=== PATIENT | female | born 1940 | race Caucasian/White ===

== ENCOUNTER → 2016-12-20 | Outpatient (CLI) | payer MEDICARE, OTHER ==
[~2016-12-20] MED LIST: ASPI81TA3 PO; CLON2TAB3 PO; DIPH-232 PO; ERGO500037 PO; IBAN3DIS2 IV; LEVO50TA83 PO; OLME1TAB28 PO; OMEP40CA3 PO; RANI75TA13 PO; SMV40T PO; ZOFRAN PO
--- NOTE | 2016-12-21 10:11 | RADRPT ---
PROCEDURE: CT Chest without contrast. CLINICAL INDICATION: PLEURAL EFFUSION TECHNIQUE: CT scan of the chest without contrast was performed on a multidetector high-resolution CT scanner. Coronal and sagittal reformatted images were obtained from the axial source images. The total exam CTDI equals 40 mGy and the total exam DLP equals seen 485 mGy-cm. COMPARISON: None FINDINGS: Lungs are clear of any infiltrate or mass. No nodule is visualized. There is a tiny right pleural effusion. No pericardial effusion is detected. There is mild aneurysmal dilatation of the ascendin g thoracic aorta which measures 3.7 cm in diameter. The arch and descending thoracic aorta are of n ormal caliber. There is mural calcification. No hilar or mediastinal adenopathy or masses present. There is no pneumothorax. No supraclavicular, internal mammary chain or axillary adenopathy is se en. No upper abdominal or adrenal mass is identified. Thoracic spine is normal. IMPRESSION: Tiny right pleural effusion. No pneumonia or mass. Mild aneurysmal dilatation ascending thoracic aorta. .Jarek Shah MD, Date Time Electronically viewed and signed by .Jarek Shah MD, on 12/21/2016 10:11 .A/
== END | disposition home or self-care (01) ==
LOC: C/S 14:44
PROVIDERS: ATTEND Internal Medicine
DX: J91.8 Pleural effusion in other conditions classified elsewhere (principal); R06.00 Dyspnea, unspecified
CPT/HCPCS: 71250

== ENCOUNTER → 2016-12-20 | Outpatient (CLI) | payer MEDICARE, OTHER ==
[~2016-12-20] MED LIST changes: +ALBUTEROL 0.083% (NEB) 2.5 MG/3 ML AMP ONE
== END | disposition home or self-care (01) ==
LOC: PUL 10:24
PROVIDERS: ATTEND Nuclear Medicine Nuclear Cardiology
DX: R06.00 Dyspnea, unspecified (principal); R06.02 Shortness of breath; J98.4 Other disorders of lung; R94.2 Abnormal results of pulmonary function studies
CPT/HCPCS: 94060; 94726; 94729

== ENCOUNTER 2018-06-10 10:34 | Emergency (ER) | END 2018-06-10 13:25 | disposition home or self-care (01) ==

== ENCOUNTER 2019-01-01 11:50 | Emergency (ER) | payer MEDICARE, OTHER ==
[~2019-01-01] VITALS: Ht 154.9 cm; Wt 76.4 kg
[~2019-01-01 11:50] MED LIST changes: -ALBUTEROL 0.083% (NEB) 2.5 MG/3 ML AMP ONE; +ASPI-831 PO; -ASPI81TA3 PO; +CLON2TAB12 PO; -CLON2TAB3 PO; +ERGO500013 PO; -ERGO500037 PO; +FEXO180T61 PO; -LEVO50TA83 PO; +LEVO50TA89 PO; +PRED20TA PO; +SIMV40TA3 PO; -SMV40T PO
[2019-01-01 11:52] VITALS: Ht 154.9 cm; Wt 76.4 kg
[2019-01-01] MEDS ORDERED: BENZONATATE 100 MG CAP PO ONE (12:30)
[2019-01-01] MEDS ORDERED: AZITHROMYCIN 500 MG TAB PO ONE (12:30)
[2019-01-01] MEDS ORDERED: BENZ-6 PO (12:44)
[2019-01-01] MEDS ORDERED: AZIT250T PO (12:44)
--- NOTE | 2019-01-01 12:46 | ERD ---
ER Documentation Chief Complaint Chief Complaint cough, short of breath x5 days HPI Patient is a 78-year-old female with hypertension high cholesterol who presents with cough. She started with cough, fevers, and shortness of breath on Friday. She said symptoms for 5 days. Symptoms have been worsening but she is speaking in full sentences. She reports cough which is productive with phlegm. She tried a cough medicine and Advil. She complained of headache as well. She does not know if she got her flu shot this year. Upon review of old medical records the patient has multiple visits for various complaints. Her primary doctor is Dr. Higgins. ROS All systems reviewed and are negative except as per history of present illness. Medications Home Meds Active Scripts Benzonatate* (Tessalon Perle*) 100 Mg Capsule, 100 MG PO Q8H PRN for COUGH, #30 CAP Prov:HEATHER PATEL MD 01/01/19 Azithromycin* (Zithromax*) 250 Mg Tablet, 250 MG PO DAILY for 4 Days, TAB Prov:HEATHER PATEL MD 01/01/19 Fexofenadine Hcl* (Ashley*) 180 Mg Tablet, 180 MG PO DAILY, #15 TAB Prov:KESHIA AKINS MD 06/10/18 Prednisone* (Prednisone*) 20 Mg Tab, 40 MG PO DAILY for 4 Days, TAB Start June 11, 2018 Prov:KESHIA AKINS MD 06/10/18 Reported Medications [Zofran] No Conflict Check, 4 MG PO PRN 07/17/13 Diphenoxylate Hcl-Atropine (Lomotil) 1 Tab Tablet, 1 TAB PO PRN 03/23/13 Ibandronate Sodium (Boniva) 3 Mg/3 Ml/Box Syringekit, 3 MG IV every 6months 03/23/13 Levothyroxine Sodium* (Synthroid*) 50 Mcg Tablet, 50 MCG PO DAILY 03/23/13 Simvastatin (Simvastatin) 40 Mg Tablet, 40 MG PO DAILY 03/23/13 Ranitidine Hcl* (Zantac*) 75 Mg Tablet, 300 MG PO DAILY 03/23/13 Aspirin (Aspirin) 81 Mg Chew, 81 MG PO DAILY 03/23/13 Ergocalciferol (Vitamin D2) (VITAMIN D2) 50,000 Unit Capsule, 70255 UNIT PO MONTHLY 6/25/13 Omeprazole* (Prilosec*) 40 Mg Capsule.dr, 40 MG PO DAILY 03/23/13 Diphenoxylate Hcl-Atropine (Lomotil) 1 Tab Tablet, 1 TAB PO Q8 03/23/13 Olmesartan-Hydrochlorothiazide (Benicar HCT) 1 Tab Tablet, 1 TAB PO DAILY 03/23/13 Clonazepam* (Clonazepam*) 2 Mg Tablet, 2 MG PO DAILY 03/23/13 Levothyroxine Sodium* (Synthroid*) 50 Mcg Tablet, 50 MCG PO AM BEFORE BREAKFAST 09/22/10 Allergies Allergies: Coded Allergies: Sulfa (Sulfonamide Antibiotics) (Verified Allergy, Severe, 06/10/18) REDNESS; ITCHING SWELLING cortisone (Verified Allergy, Intermediate, RASH, 01/01/19) Cephalosporins (Verified Allergy, Mild, 06/10/18) REDNESS; ITCHING SWELLING Penicillins (Verified Allergy, Mild, 06/10/18) REDNESS; ITCHING SWELLING PMhx/Soc Medical and Surgical Hx: pt denies Surgical Hx History of Surgery: No Anesthesia Reaction: No Hx Neurological Disorder: No Hx Respiratory Disorders: No Hx Cardiac Disorders: Yes (HTN, HIGH CHOLESTEROL) Hx Psychiatric Problems: No Hx Miscellaneous Medical Probl: Yes (HERNIA, STOMACH ULCER) Hx Alcohol Use: No Hx Substance Use: No Hx Tobacco Use: Yes Smoking Status: Former smoker FmHx Family History: No diabetes Physical Exam Vitals Vital Signs Date Temp Pulse Resp B/P (MAP) Pulse Ox O2 O2 Flow FiO2 Time Delivery Rate 01/01/19 98.5 95 20 133/76 93 11:52 (95) Physical Exam Const: No acute distress Head: Atraumatic Eyes: Normal Conjunctiva ENT: Normal External Ears, Nose and Mouth. Neck: Full range of motion. No meningismus. Resp: Clear to auscultation bilaterally Cardio: Regular rate and rhythm, no murmurs Abd: Soft, non tender, non distended. Normal bowel sounds Skin: No petechiae or rashes Back: No midline or flank tenderness Ext: No cyanosis, or edema Neur: Awake and alert Psych: Normal Mood and Affect Results 24 hrs Current Medications Medications Dose Sig/Karen Start Time Status Last (Trade) Ordered Route PRN Stop Time Admin Dose Reason Admin 500 mg ONCE ONCE 01/01/19 DC 01/01/19 Azithromycin PO 12:30 01/01/19 12:33 (Zithromax) 12:31 Benzonatate 200 mg ONCE ONCE 01/01/19 DC (Tessalon) PO 12:30 01/01/19 12:31 Procedures/MDM EKG read by me: Rate/Rhythm: Regular rate and rhythm at a rate of 80 Intervals: Normal Impression: No evidence of ischemia or arrhythmia Chest X-ray 1V Interpreted by me: Soft Tissue: No acute abnormalities Bones: No acute abnormalities Mediastinum/Cardiac Silhouette/Lungs: No obvious signs of pneumonia or pneumothorax Flu swab negative. Patient is a 78-year-old female with hypertension and high cholesterol who presents with cough and shortness of breath. Chest x-ray shows no obvious pneumonia or pneumothorax. EKG was normal. Flu swab was negative. At this point I doubt pneumonia, pneumothorax, pulmonary embolism, aortic dissection, or acute coronary syndrome. I believe the patient likely has acute bronchitis. The patient will be discharged with a prescription for Zithromax and Tessalon. The first doses were given in the emergency department. She will be discharged but she should follow-up closely with her primary doctor within 24-48 hours for reevaluation. Departure Diagnosis: Primary Impression: Bronchitis Additional Impression: Cough Condition: Fair Patient Instructions: Bronchitis, Antiobiotic Treatment (Adult) Referrals: Dr. Higgins Additional Instructions: Call your primary care doctor TOMORROW for an appointment during the next 1-2 days.See the doctor sooner or return here if your condition worsens before your appointment time. HEATHER PATEL MD Jan 01, 2019 12:46
[2019-01-01 13:08] VITALS: BP 126/81; PULSE 82; RESP 20
== END 2019-01-01 13:15 | disposition home or self-care (01) ==
LOC: E/R 11:50
DX: J40 Bronchitis, not specified as acute or chronic (principal); I10 Essential (primary) hypertension; Z79.82 Long term (current) use of aspirin; Z87.891 Personal history of nicotine dependence
CPT/HCPCS: 71045; 87400